=== PATIENT | female | born 1995 | race Caucasian/White ===

== ENCOUNTER 2016-10-31 21:40 | Observation (INO) | payer OTHER, SELFPAY ==
[~2016-10-31] VITALS: Ht 165.1 cm; Wt 73.9 kg
== END 2016-11-01 01:50 | disposition left against medical advice (07) ==
LOC: SPU 21:40
PROVIDERS: ADMIT Specialist; ATTEND Specialist
DX: O48.0 Post-term pregnancy (principal); Z3A.40 40 weeks gestation of pregnancy
CPT/HCPCS: 59025; 81002; G0378 ×2